=== PATIENT | male | born 1965 | race Two or more races ===

== ENCOUNTER 2018-08-16 09:59 | Inpatient (IN) | payer BC ==
[~2018-08-16] VITALS: Ht 170.2 cm; Wt 89.4 kg
[2018-08-16 10:22] VITALS: Ht 170.2 cm; Wt 89.4 kg
[2018-08-16 12:02] LABS: BASOPHIL % 0.8 % (0-2); PLATELET COUNT 152 x10^3mcL (130-400); RED CELL DISTRIBUTION WIDTH 12.6 % (11.5-14.5)
[2018-08-16 12:14] LABS: CALCIUM 9.1 mg/dL (8.5-10.1); CARBON DIOXIDE 27.4 mmol/L (21-32); CHLORIDE SERUM 102 mmol/L (98-107); CREATININE SERUM 1.6 mg/dL (0.7-1.3); GFR1 48 mL/min; GLUCOSE SERUM 176 mg/dL (74-106); POTASSIUM SERUM 4.3 mmol/L (3.5-5.1); SODIUM SERUM 138 mmol/L (136-145)
[2018-08-16 12:19] LABS: ALKALINE PHOSPHATASE 85 U/L (46-116); ALT/SGPT 42 U/L (16-63); AST/SGOT 15 U/L (15-37); BILIRUBIN TOTAL 0.4 mg/dL (0.20-1.00); TOTAL PROTEIN, SERUM 7.3 g/dL (6.4-8.2)
[2018-08-16 12:30] LABS: CK-MB 2.8 ng/mL (0-3.6)
[2018-08-16 12:35] LABS: AMPHETAMINE QUAL UR NONE DETECTED (See below)
[2018-08-16 13:46] VITALS: BP 158/92
[2018-08-16 14:19] LABS: HDL CHOLESTEROL 39 mg/dL (40-60)
[2018-08-16 14:21] LABS: CHOLESTEROL 309 mg/dL (<200); CHOLESTEROL/HDL RATIO 7.9; TRIGLYCERIDES 428 mg/dL (<150)
[2018-08-16 17:49] VITALS: BP 147/89
[2018-08-16 21:09] VITALS: BP 153/86
[2018-08-17 06:00] VITALS: BP 143/93
[2018-08-17 06:05] LABS: BASOPHIL % 0.4 % (0-2); PLATELET COUNT 200 x10^3mcL (130-400)
[2018-08-17 06:40] LABS: CALCIUM 9.3 mg/dL (8.5-10.1); CARBON DIOXIDE 24.9 mmol/L (21-32); CREATININE SERUM 1.6 mg/dL (0.7-1.3); POTASSIUM SERUM 4.1 mmol/L (3.5-5.1)
[2018-08-17] MEDS ORDERED: CARVEDILOL6.25 M1 PO (08:32)
[2018-08-17] MEDS ORDERED: ASPIRIN ADULT L81 M5 PO (08:32)
[2018-08-17] MEDS ORDERED: ATORVASTATIN CA40 M1 PO (08:32)
[2018-08-17 09:01] VITALS: BP 143/93
== END 2018-08-17 09:26 | disposition home or self-care (01) | DRG 304 ==
LOC: ED 09:59 → DU 11:20
PROVIDERS: Emergency Medicine; ADMIT General Practice
DX: I16.0 Hypertensive urgency (principal); N17.0 Acute kidney failure with tubular necrosis; I16.1 Hypertensive emergency; N18.9 Chronic kidney disease, unspecified; I12.9 Hypertensive chronic kidney disease with stage 1 through stage 4 chronic kidney disease, or unspecified chronic kidney disease; E11.22 Type 2 diabetes mellitus with diabetic chronic kidney disease; I25.10 Atherosclerotic heart disease of native coronary artery without angina pectoris; Z95.5 Presence of coronary angioplasty implant and graft
CPT/HCPCS: 82962; G0480; J3490; Q0092